=== PATIENT | female | born 1995 | race Caucasian/White ===

== ENCOUNTER 2017-10-10 06:02 | Emergency (ER) | payer OTHER ==
[~2017-10-10] VITALS: Ht 172.7 cm; Wt 81.6 kg
[2017-10-10] MEDS ORDERED: [UNRECOGNIZED DRUG - OTHER] (06:37)
== END 2017-10-10 13:46 | disposition home or self-care (01) ==
LOC: ER 06:02
DX: K29.70 Gastritis, unspecified, without bleeding (principal); K52.9 Noninfective gastroenteritis and colitis, unspecified